=== PATIENT | male | born 1980 | race African-American/Black ===

== ENCOUNTER 2022-06-24 00:05 | Emergency (ER) | payer OTHER ==
[~2022-06-24] VITALS: Ht 175.3 cm; Wt 79.5 kg
[2022-06-24] MEDS ORDERED: NO HOME MEDS (00:31)
[2022-06-24] MEDS ORDERED: normal saline 1000ML IV soln IVB STA (02:27)
[2022-06-24] MEDS ORDERED: ketorolac tromethamine 15mg/ml inj. IV ONE (02:30)
[2022-06-24] MEDS ORDERED: dexamethasone 4mg/ml inj IV ONE (02:30)
[2022-06-24] MEDS ORDERED: morphine 2 MG/ML inj. syringe IV PRN (02:30)
[2022-06-24] MEDS ORDERED: proCHLORperazine 10 MG/2 ml inj IV ONE (02:30)
[2022-06-24] MEDS ORDERED: SUMAtriptan succ. 6 MG/0.5ml vial SQ ONE (02:30)
[2022-06-24 04:22] VITALS: BP 154/98
== END 2022-06-24 04:24 | disposition home or self-care (01) ==
LOC: ER 00:06
DX: S06.9X0A Unspecified intracranial injury without loss of consciousness, initial encounter (principal); G43.909 Migraine, unspecified, not intractable, without status migrainosus; F12.90 Cannabis use, unspecified, uncomplicated; Z98.890 Other specified postprocedural states; X58.XXXA Exposure to other specified factors, initial encounter; Y93.89 Activity, other specified; Y92.89 Other specified places as the place of occurrence of the external cause; Y99.8 Other external cause status
CPT/HCPCS: 96361; 96372; 96374; 96375; 99284; J0780; J1100; J1885; J3030; J7030